=== PATIENT | male | born 1960 | race African-American/Black ===

== ENCOUNTER 2016-10-14 15:00 | Emergency (ER) | payer OTHER ==
[~2016-10-14] VITALS: Ht 170.2 cm; Wt 103.4 kg
[~2016-10-14 15:00] MED LIST: DEXT10TA38 PO; DIPH25TA PO; DM/P295L2 PO; LEVO500T38 PO; LEVO750T5 PO; LOSA25TA4 PO; METF500T4 PO
[2016-10-14 15:35] VITALS: BP 134/95
[2016-10-14] MEDS ORDERED: MORPHINE SULFATE 10 MG/ML VIAL. IM ONE (15:45)
[2016-10-14] MEDS ORDERED: diazePAM 5 MG TABLET PO ONE (15:45)
[2016-10-14] MEDS ORDERED: KETOROLAC TROMETHAMINE 60 MG/2 ML INJ. IM ONE (15:45)
[2016-10-14] MEDS ORDERED: DIAZ5TAB PO (15:46)
--- NOTE | 2016-10-14 15:48 | PHYS DOC ---
Past Medical History Past Medical History: Diabetes-Type II, Hypertension Past Surgical History: No Surgical History Alcohol Use: None Drug Use: None Adult General Chief Complaint Chief Complaint: Neck Pain [facility] HPI Patient is a 56 year old male with history of hypertension and diabetes type 2 who presents today with mild posterior neck pain that has been going on for 3 days when he got up. He states he thinks he slept wrong. Patient denies any pain radiating to bilateral upper extremities. Denies any injuries. Denies any chest pain or shortness of breath. He states the pain is only when he turns his neck [id number] or front to back. Patient states his had similar pain before. He states he takes hydrocodone which he did not try taking. Review of Systems Review of Systems Constitutional: Denies fever or chills [] Eyes: Denies change in visual acuity, redness, or eye pain [] HENT: Denies nasal congestion or sore throat [] Respiratory: Denies cough or shortness of breath [] Cardiovascular: No additional information not addressed in HPI [] GI: Denies abdominal pain, nausea, vomiting, bloody stools or diarrhea [] : Denies dysuria or hematuria [] Musculoskeletal: Posterior neck pain Integument: Denies rash or skin lesions [] Neurologic: Denies headache, focal weakness or sensory changes [] Endocrine: Denies polyuria or polydipsia [] Allergies Allergies Allergies Coded Allergies Type Severity Reaction Last Updated Verified No Known Drug Allergies 01/27/15 No Physical Exam Physical Exam Constitutional: Well developed, well nourished, no acute distress, non-toxic appearance. [] HENT: Normocephalic, atraumatic, bilateral external ears normal, oropharynx moist, no oral exudates, nose normal. [] Eyes: PERRLA, EOMI, conjunctiva normal, no discharge. [] Neck: Normal range of motion, no tenderness, supple, no stridor. [] Cardiovascular:Heart rate regular rhythm, no murmur [] Lungs & Thorax: Bilateral breath sounds clear to auscultation [] Abdomen: Bowel sounds normal, soft, no tenderness, no masses, no pulsatile masses. [] Skin: Warm, dry, no erythema, no rash. [] Back: No tenderness, no CVA tenderness. [] Extremities: No tenderness, no cyanosis, no clubbing, ROM intact, no edema. [] Neurologic: Alert and oriented X 3, normal motor function, normal sensory function, no focal deficits noted. [] Psychologic: Affect normal, judgement normal, mood normal. [] Current Patient Data Vital Signs Vital Signs Date Time Temp Pulse Resp B/P (MAP) Pulse Ox O2 Delivery O2 Flow Rate FiO2 10/14/16 15:35 98.4 120 22 97 Room Air 98.4 EKG EKG [] Radiology/Procedures Radiology/Procedures [] Course & Med Decision Making Course & Med Decision Making Pertinent Labs and Imaging studies reviewed. (See chart for details) Patient is in the ED with musculoskeletal neck pain suspicious of Torticollis. We gave him Morphine IM, Valium and Toradol in the ED. He'll be discharged with Valium. He is to follow-up with his own doctor in one week. [] Dragon Disclaimer Dragon Disclaimer This electronic medical record was generated, in whole or in part, using a voice recognition dictation system. Departure Departure Impression: Primary Impression: Torticollis, acute Disposition: 01 HOME, SELF-CARE Condition: STABLE Referrals: IBAN ISAAC MD (PCP) Patient Instructions: Torticollis, Acute Additional Instructions: You were seen for neck pain. We highly recommend you apply heat to your neck at least 3 times a day. Continue taking the rest of the medications as ordered. You can take the Valium instead of Flexeril for a few days continue taking Hydrocodone and naproxen for pain. Scripts Diazepam (VALIUM) 5 Mg Tablet 5 MG PO TID, #15 TAB Prov: KATALINA BLACKWOOD APRN 10/14/16 KATALINA BLACKWOOD APRN October 14, 2016 15:48
== END 2016-10-14 15:59 | disposition home or self-care (01) ==
LOC: ER 15:25
DX: M43.6 Torticollis (principal); E11.9 Type 2 diabetes mellitus without complications; I10 Essential (primary) hypertension
CPT/HCPCS: 96372; 99284; J1885; J2270